=== PATIENT | female | born 1980 ===

== ENCOUNTER 2017-03-05 15:36 | Emergency (ER) | payer SELFPAY ==
[2017-03-05 15:55] VITALS: BP 100/62; PULSE 73; RESP 16; TEMP 99; O2SAT 100
--- NOTE | 2017-03-05 16:29 | ED PDOC ---
Lower Extremity Pain/Injury Time Seen by Provider: 03/05/17 16:06 Chief Complaint (Nursing): Lower Extremity Problem/Injury Chief Complaint (Provider): Left ankle pain History Per: Patient History/Exam Limitations: no limitations Onset/Duration Of Symptoms: Sudden Onset Current Symptoms Are (Timing): Still Present Severity: Moderate Additional Complaint(s): Lea Dobson is a 36 y/o female presenting to the ER on 03/05/2017 with a sudden onset of right ankle pain. Prior to arrival, patient reports she was lifting heavy weights at a local gym when her legs gave out on her, forcing her to twist her ankle. After the injury, she also felt "cramping" pelvic pain that eventually resolved on its own. Patient was able to ambulate to the ER for evaluation. - Ankle/Foot Description Of Injury: Twisted Past Medical History Reviewed: Historical Data, Nursing Documentation, Vital Signs Vital Signs: Last Vital Signs Temp 99.0 F 03/05/17 15:50 Pulse 73 03/05/17 15:50 Resp 16 03/05/17 15:50 BP 100/62 03/05/17 15:50 Pulse Ox 100 03/05/17 15:50 - Medical History PMH: Gastritis - Surgical History Surgical History: Cholecystectomy - Family History Family History: States: No Known Family Hx - Living Arrangements Living Arrangements: With Family - Social History Current smoker - smoking cessation education provided: No Alcohol: None Drugs: Denies - Home Medications Home Medications: Ambulatory Orders Medication Instructions Recorded Dicyclomine [Bentyl] 20 mg PO BID PRN #30 tab 09/16/16 Ondansetron [Zofran] 4 mg PO Q8H PRN #30 tab 09/16/16 Saccharomyces Boulardi [Florastor] 500 mg PO BID #28 cap 09/16/16 Nitrofurantoin Macrocrystals 100 mg PO BID #20 cap 09/17/16 [Macrobid] Ibuprofen [Motrin] 600 mg PO Q6 PRN #15 tab 03/05/17 - Allergies Allergies/Adverse Reactions: Allergies Allergy/AdvReac Type Severity Reaction Status Date / Time No Known Allergies Allergy Verified 03/05/17 15:50 Wells Criteria for PE - Wells Criteria for Pulmonary Embolism Clinical Signs and Symptoms of DVT: No P.E is #1 Diagnosis, or Equally Likely: No Heart Rate >100: No Immobilization at least 3 days;Surgery previous 4 weeks: No Previous, objectively diagnosed PE or DVT: No Hemoptysis: No Malignancy w/treatment within 6 months, or palliative: No Total Score: 0 Review of Systems ROS Statement: Except As Marked, All Systems Reviewed And Found Negative Gastrointestinal: Positive for: Abdominal Pain (muscle strain to abdomen after lifting at the gym). Negative for: Nausea, Vomiting Genitourinary Female: Positive for: Pelvic Pain Musculoskeletal: Positive for: Leg Pain ((+) right ankle pain ) Neurological: Positive for: Other (no head injury or LOC). Negative for: Weakness, Numbness Physical Exam - Reviewed Nursing Documentation Reviewed: Yes Vital Signs Reviewed: Yes - Physical Exam Appears: Positive for: Non-toxic, No Acute Distress Head Exam: Positive for: ATRAUMATIC, NORMOCEPHALIC Skin: Positive for: Normal Color. Negative for: Rash Eye Exam: Positive for: Normal appearance Neck: Positive for: Normal, Painless ROM Gastrointestinal/Abdominal: Positive for: Normal Exam, Bowel Sounds ( normoactive in all 4 quadrants), Soft, Other (no ecchymosis or STS to abdominal wall). Negative for: Tenderness, Distended, Guarding, Rebound Back: Negative for: L CVA Tenderness, R CVA Tenderness, Vertebral Tenderness Extremity: Positive for: Tenderness ((+) right lateral malleolus; (-) tenderness to right foot ), Swelling ((+) right lateral malleolus with decreased ROM). Negative for: Deformity Neurologic/Psych: Positive for: Alert, Oriented, Gait (steady ). Negative for: Motor/Sensory Deficits - Laboratory Results Urine POC: Negative - ECG O2 Sat by Pulse Oximetry: 100 Pulse Ox Interpretation: Normal - Other Rad right ankle x-ray X-Ray: Interpreted by Me, Viewed By Me X-Ray Interpretation: no fx, no dis, mild STS Medical Decision Making Medical Decision Makin:06 Initial Impression- 36 y/o female with right ankle injury and strain to abdominal wall Initial Plan- * XR right ankle * Ibuprofen 600 mg PO * Urine preg Abdominal exam is benign. Motrin dose helped abdominal and ankle pain. X-ray negative for fracture or dislocation. See procedure note, crutches given. Patient was referred to clinic for follow up. Rx motrin provided. Documented by Paolo Mobley, acting as a scribe for Terri Amsellem, PA-C All medical record entries made by the Amber were at my direction and personally dictated by me. I have reviewed the chart and agree that the record accurately reflects my personal performance of the history, physical exam, medical decision making, and the department course for this patient. I have also personally directed, reviewed, and agree with the discharge instructions and disposition. Procedures - Splinting Location: right ankle Pre-Made Type: kayley wrap, aircast and orthoshoe Disposition - Clinical Impression Clinical Impression: Ankle sprain, Abdominal wall strain - Patient ED Disposition Is Patient to be Admitted: No Counseled Patient/Family Regarding: Studies Performed, Diagnosis, Need For Followup, Rx Given - Disposition Referrals: [facility] [Outside] Podiatry Clinic [Outside] Disposition: Routine/Home Disposition Time: 17:35 Condition: STABLE Additional Instructions: Ice, rest and elevate affected area. Take prescription meds for pain relief as needed as directed. Follow up in 2-3 days with podiatry clinic and family practice clinic. Prescriptions: Ibuprofen [Motrin] 600 mg PO Q6 PRN #15 tab PRN Reason: Pain, Moderate (4-7) Instructions: Ankle Sprain (ED), Crutch Instructions (ED), Muscle Strain (ED), Ankle Stirrup Splint (ED) Forms: [facility] ED School/Work Excuse Print Language: OCCITAN
--- NOTE | 2017-03-05 17:35 | RAD ---
PROCEDURE: Right ankle dated 03/05/2017 HISTORY: trauma COMPARISON: None FINDINGS: BONES: Current study reveals no evidence of acute displaced fracture nor dislocation. Osseous structures including the talar dome intact. Ankle mortise maintained. JOINTS: Ankle mortise maintained. No significant osteoarthritis. SOFT TISSUES: No significant soft tissue swelling. OTHER FINDINGS: None. IMPRESSION: No evidence of acute displaced fracture nor dislocation. If symptoms persist or occult fracture suspected clinically consider repeat radiographs in 5-10 days as most fractures should become radiographically evident in this timeframe.
== END 2017-03-05 17:50 | disposition home or self-care (01) ==
LOC: H.ER 15:36
DX: S93.402A Sprain of unspecified ligament of left ankle, initial encounter (principal); S39.011A Strain of muscle, fascia and tendon of abdomen, initial encounter; Y93.B9 Activity, other involving muscle strengthening exercises; Y92.39 Other specified sports and athletic area as the place of occurrence of the external cause

== ENCOUNTER 2017-05-22 18:10 | Observation (INO) | payer OTHER ==
[2017-05-22 18:20] VITALS: BP 126/68; PULSE 76; RESP 16; TEMP 98.6; O2SAT 99
[2017-05-22] MEDS ORDERED: Iohexol 240 (50 ml) PO ONE (19:44)
--- NOTE | 2017-05-22 20:15 | ED PDOC ---
HPI: Abdomen Time Seen by Provider: 05/22/17 19:15 Chief Complaint (Nursing): Dizziness/Lightheaded Chief Complaint (Provider): Abdominal pain History Per: Patient History/Exam Limitations: no limitations Onset/Duration Of Symptoms: Days (x1 week) Current Symptoms Are (Timing): Still Present Additional Complaint(s): Lea Dobson is a 37 year old female who presents to the emergency department with a complaint of intermittent RLQ pain associated with dizziness, irregular menses and vaginal spotting ongoing for 1 week. Denied any fever, chills, nausea , vomiting, diarrhea, cough, shortness of breath, dysuria or hematuria. Patient stated that her menses has been irregular since she had control injection preformed in 10/2016 done at [facility]. She reported being concerned about possible . LMP: February 2017 PMD: none provided Past Medical History Reviewed: Historical Data, Nursing Documentation, Vital Signs Vital Signs: Last Vital Signs Temp 98.6 F 05/22/17 18:17 Pulse 76 05/22/17 18:17 Resp 16 05/22/17 18:17 BP 126/68 05/22/17 18:17 Pulse Ox 99 05/22/17 20:31 - Medical History PMH: No Chronic Diseases, Gastritis Denies: Chronic Kidney Disease - Surgical History Surgical History: Cholecystectomy - Family History Family History: States: Unknown Family Hx - Social History Current smoker - smoking cessation education provided: No Alcohol: None Drugs: Denies - Immunization History Hx Tetanus Toxoid Vaccination: Yes Hx Influenza Vaccination: Yes Hx Pneumococcal Vaccination: Yes - Home Medications Home Medications: Ambulatory Orders Medication Instructions Recorded Dicyclomine [Bentyl] 20 mg PO BID PRN #30 tab 09/16/16 Ondansetron [Zofran] 4 mg PO Q8H PRN #30 tab 09/16/16 Saccharomyces Boulardi [Florastor] 500 mg PO BID #28 cap 09/16/16 Nitrofurantoin Macrocrystals 100 mg PO BID #20 cap 09/17/16 [Macrobid] Ibuprofen [Motrin] 600 mg PO Q6 PRN #15 tab 03/05/17 - Allergies Allergies/Adverse Reactions: Allergies Allergy/AdvReac Type Severity Reaction Status Date / Time No Known Allergies Allergy Verified 03/05/17 15:50 Review of Systems ROS Statement: Except As Marked, All Systems Reviewed And Found Negative Constitutional: Negative for: Fever, Chills Respiratory: Negative for: Cough, Shortness of Breath Gastrointestinal: Positive for: Abdominal Pain (RLQ). Negative for: Nausea, Vomiting, Diarrhea Genitourinary Female: Negative for: Dysuria, Hematuria Neurological: Positive for: Dizziness Physical Exam - Reviewed Nursing Documentation Reviewed: Yes Vital Signs Reviewed: Yes - Physical Exam Appears: Positive for: Well, Non-toxic, No Acute Distress Head Exam: Positive for: ATRAUMATIC, NORMAL INSPECTION, NORMOCEPHALIC Cardiovascular/Chest: Positive for: Regular Rate, Rhythm. Negative for: Chest Non Tender Respiratory: Positive for: Normal Breath Sounds. Negative for: Respiratory Distress Gastrointestinal/Abdominal: Positive for: Tenderness (mild RLQ). Negative for: Normal Exam Neurologic/Psych: Positive for: Alert, narrow gauge operator II-XII, Oriented - ECG O2 Sat by Pulse Oximetry: 99 (RA) Pulse Ox Interpretation: Normal Medical Decision Making Medical Decision Making: Initial Impression: RLQ pain; Irregular menses Initial Plan: * CT ABD/Pelvis with PO and IV contrast * Labs * Urine dipstick * Urine * Omnipaque 50ml PO * Urinalysis * US pelvis/transvag * Admit to hospital Scribe Attestation: Documented by Delilah Page, acting as a scribe for Wilbert Kwon MD. Provider Scribe Attestation: All medical record entries made by the Scribe were at my direction and personally dictated by me. I have reviewed the chart and agree that the record accurately reflects my personal performance of the history, physical exam, medical decision making, and the department course for this patient. I have also personally directed, reviewed, and agree with the discharge instructions and disposition. Disposition - Disposition Disposition Time: 19:44 Condition: GOOD
--- NOTE | 2017-05-22 20:38 | ED PDOC ---
HPI: Abdomen Time Seen by Provider: 05/22/17 19:15 Chief Complaint (Nursing): Dizziness/Lightheaded Chief Complaint (Provider): Abdominal pain History Per: Patient History/Exam Limitations: no limitations Onset/Duration Of Symptoms: Days (x week) Current Symptoms Are (Timing): Still Present Additional Complaint(s): Lea Dobson is a 37 year old female who presents to the emergency department with a complaint of intermittent RLQ pain associated with dizziness, irregular menses and vaginal spotting ongoing for 1 week. Denied any fever, chills, nausea , vomiting, diarrhea, cough, shortness of breath, dysuria or hematuria. Patient stated that her menses has been irregular since she had control injection preformed in 10/2016 done at [facility]. She reported being concerned about possible . LMP: February 2017 PMD: none provided Past Medical History Reviewed: Historical Data, Nursing Documentation, Vital Signs Vital Signs: Last Vital Signs Temp 98.6 F 05/22/17 18:17 Pulse 76 05/22/17 18:17 Resp 16 05/22/17 18:17 BP 126/68 05/22/17 18:17 Pulse Ox 99 05/22/17 20:39 - Medical History PMH: Gastritis Denies: Chronic Kidney Disease - Surgical History Surgical History: Cholecystectomy - Family History Family History: States: Unknown Family Hx - Social History Current smoker - smoking cessation education provided: No Alcohol: None Drugs: Denies - Immunization History Hx Tetanus Toxoid Vaccination: Yes Hx Influenza Vaccination: Yes Hx Pneumococcal Vaccination: Yes - Home Medications Home Medications: Ambulatory Orders Medication Instructions Recorded Dicyclomine [Bentyl] 20 mg PO BID PRN #30 tab 09/16/16 Ondansetron [Zofran] 4 mg PO Q8H PRN #30 tab 09/16/16 Saccharomyces Boulardi [Florastor] 500 mg PO BID #28 cap 09/16/16 Nitrofurantoin Macrocrystals 100 mg PO BID #20 cap 09/17/16 [Macrobid] Ibuprofen [Motrin] 600 mg PO Q6 PRN #15 tab 03/05/17 - Allergies Allergies/Adverse Reactions: Allergies Allergy/AdvReac Type Severity Reaction Status Date / Time No Known Allergies Allergy Verified 03/05/17 15:50 Review of Systems ROS Statement: Except As Marked, All Systems Reviewed And Found Negative Constitutional: Negative for: Fever, Chills Respiratory: Negative for: Cough, Shortness of Breath Gastrointestinal: Positive for: Abdominal Pain (RLQ). Negative for: Nausea, Vomiting, Diarrhea Genitourinary Female: Negative for: Dysuria, Hematuria Neurological: Positive for: Dizziness Physical Exam - Reviewed Nursing Documentation Reviewed: Yes Vital Signs Reviewed: Yes - Physical Exam Appears: Positive for: Well, Non-toxic, No Acute Distress Head Exam: Positive for: ATRAUMATIC, NORMAL INSPECTION, NORMOCEPHALIC Cardiovascular/Chest: Positive for: Regular Rate, Rhythm. Negative for: Chest Non Tender Respiratory: Positive for: Normal Breath Sounds. Negative for: Respiratory Distress Gastrointestinal/Abdominal: Positive for: Soft, Tenderness (mild RLQ). Negative for: Mass Neurologic/Psych: Positive for: Alert, animal sticker II-XII, Oriented - ECG O2 Sat by Pulse Oximetry: 99 (RA) Pulse Ox Interpretation: Normal Medical Decision Making Medical Decision Making: Initial Impression: RLQ pain; Irregular menses Initial Plan: * CT ABD/Pelvis with PO and IV contrast * Labs * Urine dipstick * Urine * Omnipaque 50ml PO * Urinalysis * US pelvis/transvag * Admit to hospital Time: 1949 --This patient is choosing to leave against medical advice. The physician has personally explained to the patient that choosing to do so may result in permanent bodily harm or . The EP discussed at great length that without further evaluation and monitoring there may be unforeseen circumstances and/or deterioration causing permanent bodily harm or as a result of their choice. The patient verbalized these risks back to the physician in laymans terms. Patient is alert , oriented, and shows the mental capacity to make clear decisions regarding the patients health care at this time. The patient continues to wish to leave against medical advice Scribe Attestation: Documented by Delilah Page, acting as a scribe for Wilbert Kwon MD. Provider Scribe Attestation: All medical record entries made by the Scribe were at my direction and personally dictated by me. I have reviewed the chart and agree that the record accurately reflects my personal performance of the history, physical exam, medical decision making, and the department course for this patient. I have also personally directed, reviewed, and agree with the discharge instructions and disposition. Disposition - Clinical Impression Clinical Impression: Abdominal pain - Patient ED Disposition Is Patient to be Admitted: No Counseled Patient/Family Regarding: Need For Followup - Disposition Disposition: Against Medical Advice Disposition Time: 19:44 Condition: GOOD
== END 2017-05-22 20:03 | disposition home or self-care (01) ==
LOC: H.ER 18:10 → H.EROBSV 19:44
PROVIDERS: ADMIT Emergency Medicine; ATTEND Emergency Medicine
DX: R10.2 Pelvic and perineal pain (principal)
CPT/HCPCS: 81025; 99284; G0378

== ENCOUNTER 2017-05-25 17:53 | Observation (INO) | payer OTHER ==
[2017-05-25 18:00] VITALS: BP 94/53; PULSE 54; RESP 16; TEMP 98.2; O2SAT 99
[2017-05-25] MEDS ORDERED: Iohexol 240 (50 ml) PO STA (18:20)
[2017-05-25] MEDS ORDERED: Lactated Ringer's 1,000 ML IV STA (18:20)
[2017-05-25] MEDS ORDERED: Iohexol 240 (50 ml) ONE (18:37)
[2017-05-25 19:00] LABS: BASO % 0.4 % (0.0-2.0); EOS # 0.1 K/uL (0.0-0.7); EOS % 0.9 % (0.0-4.0); HEMATOCRIT 36.5 % (34.0-47.0); LYMPH # 2.1 K/uL (1.0-4.3); LYMPH % 27.6 % (20.0-40.0); MEAN CELL VOLUME 95.1 fl (81.0-99.0); MEAN CORPUSCULAR HGB CONC 32.6 g/dL (33.0-37.0); MEAN PLATELET VOLUME 9.9 fl (7.2-11.7); MONO # 0.4 K/uL (0.0-0.8); MONO % 4.8 % (0.0-10.0); NEUT % 66.3 % (50.0-75.0); NRBC % 0.1 % (0.0-0.0); RED CELL DISTRIBUTION WIDTH 13.3 % (11.5-14.5); WHITE BLOOD COUNT 7.5 K/uL (4.8-10.8)
[2017-05-25 19:11] LABS: ALB/GLOB RATIO 1.6 (1.0-2.1); ALKALINE PHOSPHATASE 50 U/L (38-126); ALT/SGPT 33 U/L (9-52); AST/SGOT 16 U/L (14-36); BILIRUBIN,TOTAL 1.4 mg/dl (0.2-1.3); BLOOD UREA NITROGEN 22 mg/dl (7-17); CALCIUM 9.2 mg/dL (8.4-10.2); CARBON DIOXIDE 25 mmol/L (22-30); CHLORIDE 104 mmol/L (98-107); GFR AFRICAN-AMERICAN > 60; GLUCOSE,RANDOM 90 mg/dL (65-105); MAGNESIUM 2.1 MG/DL (1.6-2.3); PHOSPHOROUS 4.1 mg/dl (2.5-4.5); POTASSIUM 3.8 MMOL/L (3.6-5.0); SODIUM 137 mmol/l (132-148); TOTAL PROTEIN 6.7 G/DL (6.3-8.2)
--- NOTE | 2017-05-25 19:17 | ED PDOC ---
HPI: Abdomen Time Seen by Provider: 05/25/17 18:06 Chief Complaint (Nursing): Abdominal Pain Chief Complaint (Provider): Abdominal pain History Per: Patient History/Exam Limitations: no limitations Onset/Duration Of Symptoms: Days Outside of [place] travel?: No Current Symptoms Are (Timing): Still Present Location Of Pain/Discomfort: Diffuse Quality Of Discomfort: "Pain" Additional Complaint(s): The pt is a 37yo female, presents to the ED for evaluation of abdominal pain which has been present intermittently for the past month but worsening over the last few days. Pt reports the pain is in her lower abdomen and radiates to her back and is associated with vomiting when she attempts to eat. Pt also reports amenorrhea for several months as well as unintentional weight loss and headache. Pt was seen in this facility 3 days ago but signed out AMA because of childcare concerns. Pt reports her pain has worsened since her last visit. She denies having a PCP with whom she regularly follows up. Pt offers no additional medical complaints. She admits that she has a lot of stress because of finances and who is pressuring patient to have another child. Past Medical History Reviewed: Historical Data, Nursing Documentation, Vital Signs Vital Signs: Last Vital Signs Temp 98.2 F 05/25/17 17:55 Pulse 54 L 05/25/17 17:55 Resp 16 05/25/17 17:55 BP 94/53 L 05/25/17 17:55 Pulse Ox 99 05/25/17 22:01 - Medical History PMH: No Chronic Diseases, Gastritis Denies: Chronic Kidney Disease - Surgical History Surgical History: Cholecystectomy - Family History Family History: States: Unknown Family Hx, Other Other Family History: pt's mother had gastric cancer - Living Arrangements Living Arrangements: With Family - Social History Current smoker - smoking cessation education provided: No Alcohol: None Drugs: Denies - Immunization History Hx Tetanus Toxoid Vaccination: Yes Hx Influenza Vaccination: Yes Hx Pneumococcal Vaccination: Yes - Home Medications Home Medications: Ambulatory Orders Medication Instructions Recorded Dicyclomine [Bentyl] 20 mg PO BID PRN #30 tab 09/16/16 Ondansetron [Zofran] 4 mg PO Q8H PRN #30 tab 09/16/16 Saccharomyces Boulardi [Florastor] 500 mg PO BID #28 cap 09/16/16 Nitrofurantoin Macrocrystals 100 mg PO BID #20 cap 09/17/16 [Macrobid] Ibuprofen [Motrin] 600 mg PO Q6 PRN #15 tab 03/05/17 Ibuprofen [Motrin Tab] 600 mg PO Q8 PRN #60 tab 05/25/17 Ondansetron ODT [Zofran ODT] 1 odt PO Q6 PRN #20 odt 05/25/17 Multivit/Folic Acid/I 1 tab PO DAILY #100 tab 05/25/17 [ Plus] - Allergies Allergies/Adverse Reactions: Allergies Allergy/AdvReac Type Severity Reaction Status Date / Time No Known Allergies Allergy Verified 03/05/17 15:50 Review of Systems ROS Statement: Except As Marked, All Systems Reviewed And Found Negative Constitutional: Positive for: Weight loss Gastrointestinal: Positive for: Vomiting, Abdominal Pain Genitourinary Female: Positive for: Other (amenorrhea) Physical Exam - Reviewed Nursing Documentation Reviewed: Yes Vital Signs Reviewed: Yes - Physical Exam Appears: Positive for: Well, In Acute Distress Head Exam: Positive for: ATRAUMATIC, NORMOCEPHALIC Skin: Positive for: Warm, Dry Eye Exam: Positive for: EOMI, PERRL ENT: Negative for: Pharyngeal Erythema, Tonsillar Exudate Neck: Positive for: Painless ROM, Supple Cardiovascular/Chest: Positive for: Regular Rate, Rhythm, Chest Non Tender. Negative for: Murmur Respiratory: Positive for: Normal Breath Sounds. Negative for: Wheezing, Respiratory Distress Gastrointestinal/Abdominal: Positive for: Soft, Tenderness (mild suprapubic). Negative for: Mass, Distended, Guarding, Rebound Back: Positive for: Normal Inspection. Negative for: L CVA Tenderness, R CVA Tenderness Extremity: Positive for: Normal ROM. Negative for: Deformity Lymphatic: Negative for: Adenopathy Neurologic/Psych: Positive for: Alert, Mood/Affect (anxious affect). Negative for: Motor/Sensory Deficits - Laboratory Results Result Diagrams: 05/25/17 18:52 05/25/17 18:52 - ECG O2 Sat by Pulse Oximetry: 99 (RA) Pulse Ox Interpretation: Normal Medical Decision Making Medical Decision Making: Time: 1809 Impression: abdominal pain Differential: Inflammatory bowel disease, thyroid disorder, dehydration, dysfunctional uterine bleeding, fibroids Plan: -- Labs -- Lactated Ringers 1L -- Zofran 8mg --Reassess Scribe Attestation: Documented by Clare Carbajal acting as a scribe for Terri Jara MD Provider Scribe Attestation: All medical record entries made by the Scribe were at my direction and personally dictated by me. I have reviewed the chart and agree that the record accurately reflects my personal performance of the history, physical exam, medical decision making, and the department course for this patient. I have also personally directed, reviewed, and agree with the discharge instructions and disposition. ED OBSERVATION Date of observation admission: 05/25/17 Time of observation admission: 18:21 - Observation admission statement Patient is being placed in observation because:: Pt with abdominal pain - Goals of Observation Goals of observation are:: Awaiting ED workup, US results - Progress Note Progress Note: 05/25/17 19:23 Labs reviewed and indicated no clinically significant abnormalities. Accession No. : [id number] Patient Name / ID : ELENA MARCUS / [id number] Exam Date : 05/25/2017 18:56:58 ( Approved ) Study Comment : Sex / Age : F / 37Y Creator : Fortino Boateng MD Dictator : Environmental Science Program Director : Principle Software Engineer : Fortino Boateng MD Approver2 : Report Date : 05/25/2017 19:39:00 My Comment : [facility] [address] [place] [address] Tel. no. Patient Name: AMRIT PARKER Pt. Address: [address] [place] [address] Med. Rec #: [id number] [place] [address]: Marek TRISTAN, Terri Kincaid Pt CELL Order Location: NATALY : 1980 Female Age: 37 Order #: [id number] Reason for exam: pelvic pain Ultrasound TRANSVAGINAL Exam Date: 05/25/17 This imaging exam was performed at [facility] EXAM: US Pelvis, Transvaginal CLINICAL HISTORY: 37 years old, female; Pain; Pelvic pain TECHNIQUE: Real-time transvaginal pelvic ultrasound (complete) with image documentation. Transvaginal imaging was used for better evaluation of the endometrium and adnexa. COMPARISON: US - TRANSVAGINAL 03/13/2016 4:41:11 PM FINDINGS: Uterus/cervix: Uterus measures 8.0 x 3.9 x 5.4 cm in size. No myometrial mass. Endometrium: 0.2 cm in thickness. Right ovary: 2.7 x 1.8 x 2.5 cm in size. 1.5 x 1.4 x 1.4 cm anechoic lesion. Small follicles. Normal flow. Left ovary: 2.6 x 1.7 x 2.9 cm in size. 1.4 x 0.8 x 1.1 cm anechoic lesion. Small follicles. Normal flow. Free fluid: No significant free fluid. Bladder: Empty bladder which cannot be evaluated with this probe. IMPRESSION: 1. Ovarian cysts. Dictated By: Fortino Boateng MD Dictated Date/Time: 05/25/171938 Signed By: Fortino Boateng MD Date Signed: 1938 Transcribed By: DAV Transcribe Date/Time : 05/25/171938 ACYP02/VRD Accession No. : [id number] Patient Name / ID : ELENA MARCUS / [id number] Exam Date : 05/25/2017 21:20:17 ( Approved ) Study Comment : Sex / Age : F / 37Y Creator : Fortino Boateng MD Dictator : Environmental Science Program Director : Principle Software Engineer : Fortino Boateng MD Approver2 : Report Date : 05/25/2017 21:46:00 My Comment : [facility] [address] [address] Tel. no. Patient Name: AMRIT PARKER Pt. Address: [address] [place] [address]. Rec #: [id number] [place] [address]: Marek TRISTAN, Terri Kincaid Pt CELL Order Location: NATALY : 1980 Female Age: 37 Order #: [id number] Reason for exam: BLQ abd pain CT Scan ABD PELVIS PO IV CONTRAST Exam Date: 05/25/17 This imaging exam was performed at [facility] EXAM: CT Abdomen and Pelvis With Intravenous Contrast CLINICAL HISTORY: 37 years old, female; Pain; Abdominal pain; Localized; Other: Blq pain; Prior surgery; Surgery date: 6+ months; Surgery type: Gb removed. Patient states: Rt fallopian tube removed, ectopic preg. ; Additional info: Blq abd pain. Sent phy. Doc. With request TECHNIQUE: Axial computed tomography images of the abdomen and pelvis with intravenous contrast. All CT scans at this facility use one or more dose reduction techniques, viz.: automated exposure control; ma/kV adjustment per patient size (including targeted exams where dose is matched to indication; i.e. head); or iterative reconstruction technique. Coronal and sagittal reformatted images were created and reviewed. CONTRAST: 80 mL of [id number] administered intravenously. COMPARISON: US - TRANSVAGINAL 05/25/2017 6:56:58 PM FINDINGS: Lower thorax: RIGHT lower lobe calcified granuloma. ABDOMEN: Liver: Unremarkable. No mass. Gallbladder and bile ducts: Cholecystectomy. No ductal dilation. Pancreas: No ductal dilation. No mass. Spleen: No splenomegaly. Adrenals: No mass. Kidneys and ureters: No mass. No hydronephrosis. Stomach and bowel: No definite mural thickening. No obstruction. Appendix: Normal caliber. No inflammation. PELVIS: Bladder: Unremarkable. Reproductive: 1.0 x 1.2 x 1.0 cm hypodense lesion within LEFT ovary. 1.4 x 1.1 x 1.2 cm hypodense lesion within RIGHT ovary. ABDOMEN and PELVIS: Intraperitoneal space: Trace free fluid within pelvis. No free air. Bones/joints: Chronic L5 pars defects. No acute fracture. Soft tissues: Unremarkable. Vasculature: Unremarkable. No aneurysm. Lymph nodes: No pathologically enlarged lymph nodes. IMPRESSION: 1. Ovarian cysts. See ultrasound report. 2. Incidental/non-acute findings are described above. Dictated By: Fortino Boateng MD Dictated Date/Time: 05/25/172145 Signed By: Fortino Boateng MD Date Signed: 2145 Transcribed By: DAV Transcribe Date/Time : 05/25/172145 ACYP02/ELENITA Disposition - Clinical Impression Clinical Impression: Amenorrhea, Abdominal cramps Counseled Patient/Family Regarding: Studies Performed, Diagnosis, Need For Followup, Rx Given - Disposition Disposition: Routine/Home Disposition Time: 18:20 Condition: IMPROVED
--- NOTE | 2017-05-25 19:39 | US ---
EXAM: US Pelvis, Transvaginal CLINICAL HISTORY: 37 years old, female; Pain; Pelvic pain TECHNIQUE: Real-time transvaginal pelvic ultrasound (complete) with image documentation. Transvaginal imaging was used for better evaluation of the endometrium and adnexa. COMPARISON: US - TRANSVAGINAL 03/13/2016 4:41:11 PM FINDINGS: Uterus/cervix: Uterus measures 8.0 x 3.9 x 5.4 cm in size. No myometrial mass. Endometrium: 0.2 cm in thickness. Right ovary: 2.7 x 1.8 x 2.5 cm in size. 1.5 x 1.4 x 1.4 cm anechoic lesion. Small follicles. Normal flow. Left ovary: 2.6 x 1.7 x 2.9 cm in size. 1.4 x 0.8 x 1.1 cm anechoic lesion. Small follicles. Normal flow. Free fluid: No significant free fluid. Bladder: Empty bladder which cannot be evaluated with this probe. IMPRESSION: 1. Ovarian cysts.
[2017-05-25 19:41] LABS: THYROID STIMULATING HORMONE 1.02 mIU/ML (0.46-4.68)
[2017-05-25] MEDS ORDERED: Sodium Chloride 0.9% 50 ML IV ONE (21:03)
[2017-05-25] MEDS ORDERED: Iohexol 300 50 ML ONE (21:03)
--- NOTE | 2017-05-25 21:46 | CT ---
EXAM: CT Abdomen and Pelvis With Intravenous Contrast CLINICAL HISTORY: 37 years old, female; Pain; Abdominal pain; Localized; Other: Blq pain; Prior surgery; Surgery date: 6+ months; Surgery type: Gb removed. Patient states: Rt fallopian tube removed, ectopic preg. ; Additional info: Blq abd pain. Sent phy. Doc. With request TECHNIQUE: Axial computed tomography images of the abdomen and pelvis with intravenous contrast. All CT scans at this facility use one or more dose reduction techniques, viz.: automated exposure control; ma/kV adjustment per patient size (including targeted exams where dose is matched to indication; i.e. head); or iterative reconstruction technique. Coronal and sagittal reformatted images were created and reviewed. CONTRAST: 80 mL of [id number] administered intravenously. COMPARISON: US - TRANSVAGINAL 05/25/2017 6:56:58 PM FINDINGS: Lower thorax: RIGHT lower lobe calcified granuloma. ABDOMEN: Liver: Unremarkable. No mass. Gallbladder and bile ducts: Cholecystectomy. No ductal dilation. Pancreas: No ductal dilation. No mass. Spleen: No splenomegaly. Adrenals: No mass. Kidneys and ureters: No mass. No hydronephrosis. Stomach and bowel: No definite mural thickening. No obstruction. Appendix: Normal caliber. No inflammation. PELVIS: Bladder: Unremarkable. Reproductive: 1.0 x 1.2 x 1.0 cm hypodense lesion within LEFT ovary. 1.4 x 1.1 x 1.2 cm hypodense lesion within RIGHT ovary. ABDOMEN and PELVIS: Intraperitoneal space: Trace free fluid within pelvis. No free air. Bones/joints: Chronic L5 pars defects. No acute fracture. Soft tissues: Unremarkable. Vasculature: Unremarkable. No aneurysm. Lymph nodes: No pathologically enlarged lymph nodes. IMPRESSION: 1. Ovarian cysts. See ultrasound report. 2. Incidental/non-acute findings are described above.
== END 2017-05-25 22:17 | disposition home or self-care (01) ==
LOC: H.ER 17:53 → H.EROBSV 18:21
PROVIDERS: ADMIT Emergency Medicine; ATTEND Emergency Medicine
DX: R10.9 Unspecified abdominal pain (principal); N91.2 Amenorrhea, unspecified; Z90.49 Acquired absence of other specified parts of digestive tract
CPT/HCPCS: 36415; 74177; 76830; 80053; 81025; 83735; 84100; 84443; 85025; 86850; 86900; 99285; G0378; J2405; J7120; Q9966; Q9967

== ENCOUNTER 2017-09-26 14:20 | Emergency (ER) | payer SELFPAY ==
[2017-09-26 14:28] VITALS: BP 103/70; O2SAT 100
[2017-09-26] MEDS ORDERED: Sodium Chloride 0.9% 1,000 ML IV STA (15:51)
--- NOTE | 2017-09-26 15:52 | ED PDOC ---
HPI: CCC, URI, Sore Throat Time Seen by Provider: 09/26/17 14:33 Chief Complaint (Nursing): Flu-like Symptoms Chief Complaint (Provider): Flu History Per: Patient Additional Complaint(s): 37 yo female, no PMH, presents to ED with complaints of fever, nasal congestion , coughing, vomiting, back pain x3 days. Reports taking Tylenol, mild relief. Of note: Pts daughter in ED for similar symptoms Past Medical History Reviewed: Nursing Documentation, Vital Signs Vital Signs: Last Vital Signs Temp 98.8 F 09/26/17 19:05 Pulse 80 09/26/17 19:05 Resp 18 09/26/17 19:05 BP 103/70 09/26/17 14:27 Pulse Ox 100 09/26/17 19:05 - Medical History PMH: No Chronic Diseases, Gastritis Denies: Chronic Kidney Disease - Surgical History Surgical History: Cholecystectomy - Family History Family History: States: Unknown Family Hx - Living Arrangements Living Arrangements: With Family - Social History Current smoker - smoking cessation education provided: No Alcohol: None Drugs: Denies - Immunization History Hx Tetanus Toxoid Vaccination: Yes Hx Influenza Vaccination: Yes Hx Pneumococcal Vaccination: Yes - Home Medications Home Medications: Ambulatory Orders Medication Instructions Recorded Dicyclomine [Bentyl] 20 mg PO BID PRN #30 tab 09/16/16 Ondansetron [Zofran] 4 mg PO Q8H PRN #30 tab 09/16/16 Saccharomyces Boulardi [Florastor] 500 mg PO BID #28 cap 09/16/16 Nitrofurantoin Macrocrystals 100 mg PO BID #20 cap 09/17/16 [Macrobid] Ibuprofen [Motrin] 600 mg PO Q6 PRN #15 tab 03/05/17 Ibuprofen [Motrin Tab] 600 mg PO Q8 PRN #60 tab 05/25/17 Ondansetron ODT [Zofran ODT] 1 odt PO Q6 PRN #20 odt 05/25/17 Multivit/Folic Acid/I 1 tab PO DAILY #100 tab 05/25/17 [ Plus] Oseltamivir [Tamiflu] 75 mg PO BID 5 Days cap 09/26/17 - Allergies Allergies/Adverse Reactions: Allergies Allergy/AdvReac Type Severity Reaction Status Date / Time No Known Allergies Allergy Verified 06/15/17 15:50 Review of Systems ROS Statement: Except As Marked, All Systems Reviewed And Found Negative Constitutional: Positive for: Fever ENT: Positive for: Nose Congestion Respiratory: Positive for: Cough Gastrointestinal: Positive for: Abdominal Pain Physical Exam - Reviewed Nursing Documentation Reviewed: Yes Vital Signs Reviewed: Yes - Physical Exam Appears: Positive for: Well, Non-toxic, No Acute Distress Head Exam: Positive for: ATRAUMATIC, NORMAL INSPECTION, NORMOCEPHALIC Skin: Positive for: Normal Color, Warm, DRY Eye Exam: Positive for: EOMI, Normal appearance, PERRL ENT: Positive for: Normal ENT Inspection Neck: Positive for: Normal, Painless ROM Cardiovascular/Chest: Positive for: Regular Rate, Rhythm Respiratory: Positive for: CNT, Normal Breath Sounds Gastrointestinal/Abdominal: Positive for: Normal Exam, Bowel Sounds, Soft Back: Positive for: Normal Inspection Extremity: Positive for: Normal ROM Neurologic/Psych: Positive for: Alert, Oriented - Laboratory Results Result Diagrams: 09/26/17 16:45 - ECG O2 Sat by Pulse Oximetry: 100 Medical Decision Making Medical Decision Making: IV access established and treatment initiated with IVF, Zofran and Toradol Labs resulted and reviewed who demonstrated full understanding. COMP re-draw needed. Pt delcined Flu A + CXR: NAd, as read by PAAsher Disposition - Clinical Impression Clinical Impression: Influenza - Patient ED Disposition Is Patient to be Admitted: No - Disposition Disposition: Routine/Home Disposition Time: 19:11 Condition: STABLE Prescriptions: Oseltamivir [Tamiflu] 75 mg PO BID 5 Days cap Instructions: Influenza in Children (ED) Forms: [facility] (Azeri) - POA Present On Arrival: None
[2017-09-26 16:30] LABS: SQUAMOUS EPITHIAL 7 /hpf (0-5); URINE BACTERIA RARE (<OCC); URINE BILIRUBIN NEGATIVE (NEGATIVE); URINE BLOOD NEGATIVE (NEGATIVE); URINE CLARITY CLOUDY (Clear); URINE COLOR AMBER (YELLOW); URINE GLUCOSE (UA) NEG (Normal); URINE LEUKOCYTE ESTERASE NEG Leu/uL (Negative); URINE NITRATE NEGATIVE (NEGATIVE); URINE PROTEIN 100 mg/dL (NEGATIVE); URINE UROBILINOGEN 0.2-1.0 mg/dL (0.2-1.0)
--- NOTE | 2017-09-26 16:44 | RAD ---
HISTORY: fever and cough COMPARISON: 09/16/2016 TECHNIQUE: Chest PA and lateral FINDINGS: LUNGS: No active pulmonary disease. PLEURA: No significant pleural effusion identified. No pneumothorax apparent. CARDIOVASCULAR: Normal. OSSEOUS STRUCTURES: No significant abnormalities. VISUALIZED UPPER ABDOMEN: Normal. OTHER FINDINGS: Surgical clips are seen in the right upper quadrant. Trachea is midline. IMPRESSION: No active disease.
[2017-09-26 17:20] LABS: BASO % 0.3 % (0.0-2.0); EOS % 0.1 % (0.0-4.0); HEMOGLOBIN 13.5 g/dL (12.0-16.0); LYMPH # 0.7 K/uL (1.0-4.3); LYMPH % 13.7 % (20.0-40.0); MEAN CELL VOLUME 92.9 fl (81.0-99.0); MEAN CORPUSCULAR HEMOGLOBIN 30.6 pg (27.0-31.0); MEAN CORPUSCULAR HGB CONC 32.9 g/dL (33.0-37.0); MEAN PLATELET VOLUME 11.4 fl (7.2-11.7); MONO # 0.6 K/uL (0.0-0.8); MONO % 11.5 % (0.0-10.0); NEUT # 3.6 K/uL (1.8-7.0); NEUT % 74.4 % (50.0-75.0); RBC 4.41 Mil/uL (3.80-5.20); RED CELL DISTRIBUTION WIDTH 13.1 % (11.5-14.5); WHITE BLOOD COUNT 4.8 K/uL (4.8-10.8)
[2017-09-26 19:07] VITALS: PULSE 80; RESP 18; TEMP 98.8
== END 2017-09-26 19:05 | disposition home or self-care (01) ==
LOC: H.ER 14:20
DX: J11.1 Influenza due to unidentified influenza virus with other respiratory manifestations (principal)
CPT/HCPCS: 71046; 81003; 81025; 85025; 87040; 87804; 96374; 99284; J1885; J2405; J7040

== ENCOUNTER 2018-01-13 18:29 | Emergency (ER) | payer SELFPAY ==
--- NOTE | 2018-01-13 20:14 | ED PDOC ---
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 States that she has discomfort with urinating and frequency, no hematuria. Denies fevers, back pain, nausea, vomiting. Past Medical History Reviewed: Historical Data, Nursing Documentation, Vital Signs Vital Signs: Last Vital Signs Temp 97.8 F 01/13/18 18:44 Pulse 76 01/13/18 18:44 Resp 18 01/13/18 18:44 BP 109/77 01/13/18 18:44 Pulse Ox 100 01/13/18 20:14 - Medical History PMH: Gastritis Denies: Chronic Kidney Disease - Surgical History Surgical History: Cholecystectomy - Family History Family History: States: Unknown Family Hx - Immunization History Hx Tetanus Toxoid Vaccination: Yes Hx Influenza Vaccination: Yes Hx Pneumococcal Vaccination: Yes - Home Medications Home Medications: Ambulatory Orders Medication Instructions Recorded Dicyclomine [Bentyl] 20 mg PO BID PRN #30 tab 09/16/16 Ondansetron [Zofran] 4 mg PO Q8H PRN #30 tab 09/16/16 Saccharomyces Boulardi [Florastor] 500 mg PO BID #28 cap 09/16/16 Nitrofurantoin Macrocrystals 100 mg PO BID #20 cap 09/17/16 [Macrobid] Ibuprofen [Motrin] 600 mg PO Q6 PRN #15 tab 03/05/17 Ibuprofen [Motrin Tab] 600 mg PO Q8 PRN #60 tab 05/25/17 Ondansetron ODT [Zofran ODT] 1 odt PO Q6 PRN #20 odt 05/25/17 Multivit/Folic Acid/I 1 tab PO DAILY #100 tab 05/25/17 [ Plus] Oseltamivir [Tamiflu] 75 mg PO BID 5 Days cap 09/26/17 Acetaminophen [Pain Reliever] 500 mg PO Q4 #30 tablet 01/13/18 - Allergies Allergies/Adverse Reactions: Allergies Allergy/AdvReac Type Severity Reaction Status Date / Time No Known Allergies Allergy Verified 01/13/18 18:43 Review of Systems ROS Statement: Except As Marked, All Systems Reviewed And Found Negative Gastrointestinal: Positive for: Abdominal Pain Genitourinary Female: Positive for: Dysuria, Frequency, Vaginal Discharge Physical Exam - Reviewed Nursing Documentation Reviewed: Yes Vital Signs Reviewed: Yes - Physical Exam Appears: Positive for: Well, Non-toxic, No Acute Distress Head Exam: Positive for: ATRAUMATIC, NORMAL INSPECTION, NORMOCEPHALIC Skin: Positive for: Normal Color, Warm, DRY Eye Exam: Positive for: EOMI, Normal appearance, PERRL ENT: Positive for: Normal ENT Inspection Neck: Positive for: Normal, Painless ROM Cardiovascular/Chest: Positive for: Regular Rate, Rhythm Respiratory: Positive for: CNT, Normal Breath Sounds Gastrointestinal/Abdominal: Positive for: Normal Exam, Soft, Tenderness ( suprapubic tenderness) Back: Positive for: Normal Inspection Extremity: Positive for: Normal ROM Neurologic/Psych: Positive for: Alert, Oriented - ECG O2 Sat by Pulse Oximetry: 100 Pulse Ox Interpretation: Normal Medical Decision Making Medical Decision MakinPM A/P: p/w suprapubic pain, dysuria, VD -will check ultrasound to r/o ectopic, Ab -will correlate u/s w/ beta-hcg -pending re-eval 1045PM EXAM: US , Transvaginal CLINICAL HISTORY: 37 years old, female; Signs and symptoms; Lmp or gestational age (in weeks): ; Other: Vag discharge; ; Additional info: Vaginal discharge, lower abdominal pain TECHNIQUE: Real-time transvaginal obstetrical ultrasound of the maternal pelvis and a first trimester with image documentation. Transvaginal imaging was used for better evaluation of the fetus and adnexa. COMPARISON: No relevant prior studies available. FINDINGS: Gestation: Gestational sac. Yolk sac. No pole. Mean sac diameter of 1.1 cm , correlating with gestational age of 5 weeks 1 day. Uterus/cervix: No subchorionic hemorrhage. No cervical dilatation or effacement. Ovaries: RIGHT ovary: 1.9 x 1.0 x 1.7 cm in size. LEFT ovary: 3.5 x 2.3 x 2.7 cm in size. No adnexal masses. Free fluid: No significant free fluid. IMPRESSION: 1. Intrauterine , of uncertain viability. Recommend followup. 2. Mildly prominent left ovary, nonspecific. Explained results of US to patient, advised close followup with repeat beta testing and ultrasound with OB. Will provide referral. Strict pelvic rest encouraged. Return precautions discsused. Disposition - Clinical Impression Clinical Impression: Threatened , Abdominal pain during - Patient ED Disposition Is Patient to be Admitted: No - Disposition [facility] Disposition: Routine/Home Disposition Time: 23:01 Condition: STABLE Prescriptions: Acetaminophen [Pain Reliever] 500 mg PO Q4 #30 tablet Instructions: Threatened Miscarriage Forms: [facility] (Armenian) Print Language: UPPER SORBIAN
[2018-01-13 20:19] LABS: SQUAMOUS EPITHIAL 4 /hpf (0-5); URINE BACTERIA RARE (<OCC); URINE BILIRUBIN NEGATIVE (NEGATIVE); URINE BLOOD NEGATIVE (NEGATIVE); URINE CLARITY SLIGHTY-CLOUDY (Clear); URINE COLOR STRAW (YELLOW); URINE GLUCOSE (UA) NEG (Normal); URINE LEUKOCYTE ESTERASE NEG Leu/uL (Negative); URINE PROTEIN NEGATIVE (NEGATIVE); URINE UROBILINOGEN 0.2-1.0 mg/dL (0.2-1.0)
--- NOTE | 2018-01-13 22:53 | US ---
EXAM: US , Transvaginal CLINICAL HISTORY: 37 years old, female; Signs and symptoms; Lmp or gestational age (in weeks): 12/09/17; Other: Vag discharge; ; Additional info: Vaginal discharge, lower abdominal pain TECHNIQUE: Real-time transvaginal obstetrical ultrasound of the maternal pelvis and a first trimester with image documentation. Transvaginal imaging was used for better evaluation of the fetus and adnexa. COMPARISON: No relevant prior studies available. FINDINGS: Gestation: Gestational sac. Yolk sac. No pole. Mean sac diameter of 1.1 cm, correlating with gestational age of 5 weeks 1 day. Uterus/cervix: No subchorionic hemorrhage. No cervical dilatation or effacement. Ovaries: RIGHT ovary: 1.9 x 1.0 x 1.7 cm in size. LEFT ovary: 3.5 x 2.3 x 2.7 cm in size. No adnexal masses. Free fluid: No significant free fluid. IMPRESSION: 1. Intrauterine , of uncertain viability. Recommend followup. 2. Mildly prominent left ovary, nonspecific.
[2018-01-14 00:19] VITALS: BP 102/70; PULSE 86; RESP 16; TEMP 98.2
[2018-01-14 00:21] VITALS: O2SAT 100
== END 2018-01-13 23:21 | disposition home or self-care (01) ==
LOC: H.ER 18:29
DX: O20.0 Threatened abortion (principal)

== ENCOUNTER 2018-07-23 22:56 | Emergency (ER) | payer SELFPAY ==
[2018-07-24 00:27] VITALS: BMI 25.2
[2018-07-24 00:50] LABS: SQUAMOUS EPITHIAL < 1 /hpf (0-5); URINE BACTERIA RARE (<OCC); URINE BILIRUBIN NEGATIVE (NEGATIVE); URINE BLOOD SMALL (NEGATIVE); URINE CLARITY CLEAR (Clear); URINE COLOR YELLOW (YELLOW); URINE GLUCOSE (UA) NEG (Normal); URINE LEUKOCYTE ESTERASE NEG Leu/uL (Negative); URINE PROTEIN NEGATIVE (NEGATIVE); URINE UROBILINOGEN 0.2-1.0 mg/dL (0.2-1.0)
[2018-07-24 01:43] LABS: SPECIMEN COMMENT CLOUDY
--- NOTE | 2018-07-24 09:15 | OBDCSUM ---
Datetime: 07/24/2018 02:00 Discharged to, Provider: Home Follow up at, Provider: [facility] Disch Instr Activity: Normal activity Disch Instr Diet: Regular Discharge Diet restrict Prov: drink at least 5-6 bottles of water per day Discharge Diagnosis, Provider: False Labor - Undelivered Discharge Time: 07/24/2018 02:01 Follow up in weeks, Provider: 07/29/2018 Disch Referrals: None Disch Activity Restrictions: No lifting
--- NOTE | 2018-07-24 09:16 | OBHP ---
Datetime: 07/24/2018 00:30 IP Adm Impression: , intrauterine ; No Active Labor; Intact Membranes IP Admit Plan: Observation/Evaluation; Discharge home Admit Comment, IP Provider: [facility] interpretation [id number] PNP: [facility]- Dr. Nagy WILLIAM: 09/09/2018 38 y/o at 33wks based off first trimester ultrasound is c/o lower abdominal pain that beg an at 3pm today, which initial was intermittent, but became constant 2 hrs ago. She endorses + FM, bu t denies any vaginal bleeding or loss of fluid. Last sexual activity was 1 wk ago. She denies fever, chills, headache, c/p or sob. OBGYNhx: 1 delivery via , 20 yrs ago, "at 8 months" 1 ectopic; 1 , 5 yrs ago at 41 wks, 1 spont abx 2-3 yrs ago PMH: iron deficiency anemia Meds: PNV Allergies: NKA Famhx: noncontributory Sochx: no tob, EtOH or drug use Surghx: D _ C ROS: as mentioned above Vitals: 105/53 P-82bpm RR: 16 PE: awake laying upright in bed breathing comfortably Cardio: s1s2 RRR Resp: cta b/l Abd: gravid, BS+ NST reactive; no decels Pelvic: sterile spec w/o pooling, cervix closed Ext: nonedematous, calves nontender A/P: 38 y/o at 33wks is c/o lower abdominal pain. -No signs of active labor given closed cervix. -FU UA _ fibronectin. If both negative, patient will be discharged home with labor precautions. Patient seen and evaluated with Dr. Leonid Barrios, ALEXANDER, PGY-1 OB Hospitalist on-call. I saw and examind this patient with PGY1 Agree with note., MAHNDO Extremities - PN: Normal Abdomen - PN: Normal General - PN: Normal FHR - Baseline A Provider: 140 Membranes, Provider: Intact Gestation - Est Wks by US: 33.0 Pool Provider: Negative IP Hx Assessment: The History has been Reviewed and is Current EGA AdmitDate IP: 33.1 Vital Signs Provider: Reviewed; Within Normal Limits IP Chief Complaint: Maternal discomfort NICHD Variability Prov Fetus A: Moderate 6-25bpm NICHD Accel Fetus A IP Provider: 15X15 FHR Category Provider Fetus A: Category I NICHD Decel Fetus A IP Provider: None Dilatation, Provider: 0 Genitourinary Exam: Normal
[2018-07-27 01:05] VITALS: BP 99/56; PULSE 81
== END 2018-07-24 02:00 | disposition home or self-care (01) ==
LOC: H.EROB2 22:56
DX: O26.93 Pregnancy related conditions, unspecified, third trimester (principal); R10.2 Pelvic and perineal pain; Z3A.33 33 weeks gestation of pregnancy

== ENCOUNTER 2018-08-19 15:46 | Emergency (ER) | payer SELFPAY ==
[2018-08-18 12:48] VITALS: BMI 25.2
[2018-08-19 23:45] VITALS: BP 102/59; PULSE 97; O2SAT 100
== END 2018-08-19 16:30 | disposition home or self-care (01) ==
LOC: H.EROB2 15:46
DX: O26.93 Pregnancy related conditions, unspecified, third trimester (principal); R10.2 Pelvic and perineal pain; Z3A.30 30 weeks gestation of pregnancy; O47.1 False labor at or after 37 completed weeks of gestation

== ENCOUNTER 2018-09-02 16:51 | Inpatient (IN) | payer MEDICAID, SELFPAY ==
[2018-09-02] MEDS ORDERED: Lactated Ringer's 1,000 ML IV ONE (18:07)
[2018-09-02 18:08] VITALS: BMI 26.0
[2018-09-02] MEDS ORDERED: Oxytocin 30 UNIT 30 UNITS/500 ML BAG IV ONE (18:09)
--- NOTE | 2018-09-02 18:10 | OBHP ---
Datetime: 08/19/2018 16:01 IP Adm Impression: Term, intrauterine IP Admit Plan: Observation/Evaluation; Discharge home Admit Comment, IP Provider: [facility] interpretation services-[id number] 38 y/o at 37wks w/WILLIAM of 09/09/2018 c/o one episode of sharp left lower abdominal pain, 9 /10 lasting 10 secs while getting an ultrasound down. Pain has since resolved. She denies any f/c/n/v /dysuria. She endorses + FM, but denies any vaginal bleeding or loss of fluid. PNP: Dr. Lezama @ [facility] OBGYNhx: -previous hospital visit during this for dehydration - x 2 ("8 months, 20 years ago; 41 wks, 5 years ago) -1 ectopic in 2004 with salppingectomy -1 spont abx 2-3 yrs ago PMH: Iron deficiency anemia, AMA; HGSIL/HPV dx'd 12/06/2017 Meds: PNV, iron pills Allergies: NKA Famhx: Mom- of gastric cancer 9 yrs ago; Dad-arthritis Sochx: no tob, EtOH or drug use Surghx: salpingectomy in 2004 ROS: all points reviewed and neg unless otherwise mentioned in HPI Vitals: 102/59 P-76bpm RR: 16 spo2-100% PE: awake laying upright in bed breathing comfortably Cardio: s1s2 RRR Resp: cta b/l Abd: gravid, BS+, nontender, no rigidity, no guarding Pelvic: cervix closed Ext: nonedematous, calves nontender A/P: 38 y/o at 37wks w/WILLIAM of 09/09/2018, currently stable, not in active labor, c/o one e pisode of sharp left lower abdominal pain that has since resolved with nontender abdomen. - monitoring: reactive _ cervix closed -Discharge home Patient seen and examined with Dr. Selma Barrios, FM, PGY-1 Extremities - PN: Normal Abdomen - PN: Normal Back - PN: Normal Lungs - PN: Normal Heart - PN: Normal General - PN: Normal Gestation - Est Wks by US: 37.0 IP Hx Assessment: The History has been Reviewed and is Current EGA AdmitDate IP: 37.0 Vital Signs Provider: Reviewed; Within Normal Limits IP Chief Complaint: Maternal discomfort
[2018-09-02] MEDS ORDERED: Lactated Ringer's 1,000 ML IV SCH (18:15)
[2018-09-02] MEDS ORDERED: OXYTOCIN/0.9 % NS 20 UNIT/1,000 ML BAG IV SCH (18:15)
[2018-09-02] MEDS ORDERED: Nalbuphine HCL 10 mg/ml Ampule IVP PRN (18:43)
[2018-09-02 19:03] LABS: BASO # 0.1 K/uL (0.0-0.2); BASO % 0.9 % (0.0-2.0); EOS # 0.1 K/uL (0.0-0.7); EOS % 0.6 % (0.0-4.0); HEMOGLOBIN 11.5 g/dL (12.0-16.0); LYMPH # 1.6 K/uL (1.0-4.3); LYMPH % 17.3 % (20.0-40.0); MEAN CELL VOLUME 99.1 fl (81.0-99.0); MEAN CORPUSCULAR HEMOGLOBIN 33.1 pg (27.0-31.0); MEAN CORPUSCULAR HGB CONC 33.4 g/dL (33.0-37.0); MEAN PLATELET VOLUME 9.9 fl (7.2-11.7); MONO # 0.5 K/uL (0.0-0.8); MONO % 5.2 % (0.0-10.0); NEUT # 6.9 K/uL (1.8-7.0); NRBC % 0.1 % (0.0-0.0); RBC 3.49 Mil/uL (3.80-5.20); RED CELL DISTRIBUTION WIDTH 14.7 % (11.5-14.5); WHITE BLOOD COUNT 9.1 K/uL (4.8-10.8)
[2018-09-03] MEDS ORDERED: Nalbuphine HCL 10 mg/ml Ampule ONE (04:45)
[2018-09-03] MEDS ORDERED: Lidocaine 1% Inj (20ml) ONE (07:29)
[2018-09-03] MEDS ORDERED: Oxytocin 30 UNIT 30 UNITS/500 ML BAG IV ONE (07:30)
[2018-09-03] MEDS ORDERED: Benzocaine/Menthol SPRAY TOP PRN ×2 (08:18→19:53)
[2018-09-03] MEDS ORDERED: Oxycodone/Acetaminophen 5/325 mg Tab PO PRN ×4 (08:18→19:53)
--- NOTE | 2018-09-03 08:43 | OBADHP ---
Datetime: 09/02/2018 18:54 Admit Comment, IP Provider: Pt is a 38 yo f 39 wk was scheduled today for induction of labor due decreased head circumference in US. Otherwise Pt does state she had some mild non-frequent contr action yesterday, but denies having vaginal bleed/discharge or water gush. Pt denies any fever chills chest pain, sob, abd pain dysuria or polyuria. ROS neg except for What reported in HPI PCP Dr. Masterson med: pnv PMH: None PSH: Lap viky OBGYn: prev classic c-sec due to ectopic, abnormal pap smear, workup withheld due PFH: Mom cancer, dad healthy Social Denies smoke, drink or drug use during 18:53 Assessment and plan Pt is a 38 yo f 39 wk was scheduled today for induction of labor due decreased head circum ference in US. Will be admitted for induction of labor Start cervidil Vag LR 1L 999 LR 1 L 125 Anesthesia is on case Continue monitoring Nelson Feliciano PGY1 Discussed with Dr Hahn Pelvic Type - PN: Not Done Extremities - PN: Normal Abdomen - PN: Normal Back - PN: Normal Breast - PN: Not Done Lungs - PN: Normal Heart - PN: Normal Thyroid - PN: Normal Neurologic - PN: Normal HEENT - PN: Normal General - PN: Normal FHR - Baseline A Provider: 150 Comments, ACOG Physical Exam: Pt is not in acute distress Heart S1 S2 heard Lung clear Abd +bs non tender Gestation - Est Wks by US: 39.0 Vital Signs Provider: Reviewed; Within Normal Limits IP Chief Complaint: Scheduled induction of labor NICHD Variability Prov Fetus A: Moderate 6-25bpm NICHD Accel Fetus A IP Provider: 15X15 FHR Category Provider Fetus A: Category I Genitourinary Exam: Normal DTRs - PN: Normal EGA AdmitDate IP: 39.0 IP Adm Impression: Term, intrauterine IP Admit Plan: Admit to unit; Initiate labor induction protocol Datetime: 08/19/2018 16:01 IP Hx Assessment: The History has been Reviewed and is Current Datetime: 07/24/2018 00:30 Membranes, Provider: Intact Pool Provider: Negative NICHD Decel Fetus A IP Provider: None Dilatation, Provider: 0
--- NOTE | 2018-09-03 08:47 | OBDS ---
DELIVERY PERSONNEL Delivery Doctor: Taurus Hahn MD [place]: MarioJenniDionne RN MATERNAL INFORMATION Delivery Anesthesia: Local Medications in Delivery: Oxytocin Placenta Cultured: No Maternal Complications: None Provider Comments: Lea Shields 38 yo f now P4 have delivered a healthy baby girl at 7:58 09/03/18 with delivery of placenta at 8:05. Baby girl weight 6762 with of 9/9. There was a fi rst degree teir, and 100ml EBL. Teir was repaired with sutured. Pitocin was started after placenta wa s delivered. Pt is stablized with not acute distress. There was no complication during delivery. Crystal very attended by Dr. Hahn and Dr. Feliciano ( resident) Nelson Feliciano PGY1 LABOR SUMMARY EDC: 09/09/2018 00:00 No. Babies in Womb: 1 LABOR INFORMATION Cervical Ripening Agents: Cervidil (Annotations: Inserted by Dr. Thomas ) Group B Beta Strep: Negative MEMBRANES Membranes Rupture Method: Spontaneous Rupture of Membranes: 09/03/2018 07:58 VAGINAL DELIVERY Episiotomy: None Laceration Extension: First Degree Laceration Type: Perineal Laceration Repair Note: First-degree midline peroneal laceration. Area infiltrated with 1% lidocaine . Laceration repaired with 2. 0 repeat without complication. Patient tolerated repair well. PRESENTATION/POSITION BABY A Presentation: Cephalic
--- NOTE | 2018-09-04 19:14 | OBPPN ---
Datetime: 09/04/2018 05:59 PP Pain Prov: Within normal limits PP Nausea Prov: Denies PP Flatus Prov: Yes PP Comments Phys Exam Prov: See progress note PP Impression Prov: Normal progression PP Plan Prov: Continue present management PP Progress Note Prov: S: 38 y/o s/p on 09/03/18. [facility] had an uneventful overnight. Patient c/o occasional mild pelvic pain that is controlled with medi cation. Pt is getting OOB w/o dizziness and is tolerating regular diet w/o N/V. Patient reports lochi a is like menses in volume, +flatus, voiding well. Patient is using formula to feed baby, is encourag ed to breasfeed. Denies BENNETT, chest pain, blurred vision, SOB, fever, or calf pain. O: VS WNL GEN: Sitting comfortably in bed, NAD HEENT: NCAT LUNGS: CTA, no wheezing CVS: RRR, S1, S2 present normal, no murmurs. ABD: uterus firm at umbilical level EXT: no edema, Bebe's negative A/P 38 y/o s/p , with normal progression, patient is today on her PPD1. -Regular diet -Encourage ambulation -Encourage -PNV 1 tab PO daily -Ibuprofen 600mg 1 tab Q6h prn for mild-mod pain -D/C planning Phil Thomas MD PGY1 Attending Note: patient was discussed with the resident and I agree with the above. Vital Signs Provider PP: Reviewed; Within Normal Limits
--- NOTE | 2018-09-05 14:23 | OBPPN ---
Datetime: 09/05/2018 08:43 PP Pain Prov: Within normal limits PP Nausea Prov: Denies PP Flatus Prov: Yes PP BM Prov: Yes PP Breasts Prov: Normal PP Heart Prov: Normal PP Lungs Prov: Normal PP Abdomen/Uterus Prov: Normal PP Lochia Prov: Normal PP Vulva/Perineum Prov: Normal PP CVA Tenderness Prov: Normal PP Extremities Prov: Normal PP C/S Incision Prov: Not Applicable PP Progress Prov: Normal PP Impression Prov: Normal progression PP Plan Prov: Discharge PP Progress Note Prov: 38 yo sp Normal vag delivery on 09/03/18. Pt seen and examined at bedside today. No acute event overnight. Pt state she still have pelvic pa in but controlled with Ibuprofen. Her lochia is equal to menses. Pt is dizziness have improved and sh e is eating regular diet with no nausea or vomiting. Pt state she have passed BM, and void. Pt is ariel ast and formula feeding baby. Denies BENNETT, chest pain, blurred vision, SOB, fever, or calf pain. O: VS WNL GEN: No acute distress, slept comfortable HEENT: NCAT LUNGS: CTA, no wheezing CVS: RRR, S1, S2 present normal, no murmurs. ABD: uterus firm at umbilical level EXT: no edema, Bebe's negative A/P 38 yo f sp Normal vag delivery, normal progression, will be discharged today . -Regular diet -Continue Breast feeding -PNV 1 tab PO daily -Ibuprofen 600mg 1 tab Q6h prn for mild-mod pain -Discharge today - Pt will follow up with PCP in 4-6 wk for post care. Nelson Feliciano PGY 1 Attending Note: patient was discussed with the Resident and I agree with the above assessment. IP PP Procedures: None Vital Signs Provider PP: Reviewed; Within Normal Limits
--- NOTE | 2018-09-05 14:25 | OBDCSUM ---
Datetime: 09/05/2018 08:57 Discharged to, Provider: Home Follow up at, Provider: Dr. Masterson Disch Instr Activity: Normal activity; May be up for meals; May Shower Disch Instr Diet: Regular Discharge Instructions, Provider: Routine instructions given Discharge Diagnosis, Provider: Term Delivered Discharge Time: 09/05/2018 10:00 Follow up in weeks, Provider: 4-6 wk Disch Referrals: None Disch Activity Restrictions: No exercising; No lifting; Minimize stair-climbing; No sexual activity; Nothing in vagina - [place], tampons, douche Discharge Comment, Provider: ANNA MARIE: 39.1wk Diagnosis:NVD risk factors: none Premium: 09/03/2018@7:58 Post- Summary: No complications during post- period. Lochia less than menses. Pt able to pass gas, BM, ambulate and pass urine. Tolerate regular diet, Fundus firm below umbilicus level. CBC post-: 11.5/34.6 Discharge Instructions: PNV 1 tab PO daily Ibuprofen 600mg 1 tab prn for mild-mod pain ER precautions: If excessive bleeding or fever without relief from medication, go to ED PT was urged if feeling sad, mood swing, depression, neglect of baby, suicidal thoughts, homicidal thought should go to ER or call 911 for help F/U 4-6 week for PP visit Nelson Feliciano PGY1 Contraception after Delivery: Undecided
[2018-09-05 19:07] VITALS: BP 100/67; PULSE 69; RESP 19; TEMP 98.7; O2SAT 99
== END 2018-09-05 14:30 | disposition home or self-care (01) | DRG 560 ==
LOC: H.EROB2 16:51 → H.L&D 18:07 → H.EROB2 18:11 → H.OB/GYN 09-03 17:38
PROVIDERS: ADMIT Obstetrics & Gynecology; ATTEND Obstetrics & Gynecology
PROC: 10E0XZZ Delivery of Products of Conception, External Approach (ICD-10-PCS; principal; 2018-09-03)
PROC: 0HQ9XZZ Repair Perineum Skin, External Approach (ICD-10-PCS; 2018-09-03)
PROC: 4A1HXCZ Monitoring of Products of Conception, Cardiac Rate, External Approach (ICD-10-PCS; 2018-09-03)
DX: O70.0 First degree perineal laceration during delivery (principal); Z37.0 Single live birth; Z3A.39 39 weeks gestation of pregnancy

== ENCOUNTER 2018-09-06 20:22 | Emergency (ER) | payer MEDICAID ==
[2018-09-06 20:23] VITALS: BMI 26.0
--- NOTE | 2018-09-06 22:27 | ED PDOC ---
HPI: General Adult Time Seen by Provider: 09/06/18 22:00 Chief Complaint (Nursing): Female Genitourinary Additional Complaint(s): 38 y/o female presents for evaluation of lower extremity pain/swelling x 3 days. Patient states she was induced and gave vaginally 09/03 and swelling started after. Patient reports pain only with ambulation. Patient also reports bilateral breast tenderness with "lumps"; states she has not been able to express milk since giving despite breast pump and attempting to have baby breast feed. Patient reports dysuria x 1 day. Denies fever, nausea/vomiting, chest pain, shortness of breath, palpitations, nipple discharge, changes in bowel movements, hematuria, vaginal bleeding/discharge. Past Medical History Reviewed: Historical Data, Nursing Documentation, Vital Signs Vital Signs: Last Vital Signs Temp 98.2 F 09/06/18 21:49 Pulse 67 09/06/18 21:49 Resp 16 09/06/18 21:49 BP 119/78 09/06/18 21:49 Pulse Ox 98 09/06/18 21:49 - Medical History PMH: Gastritis Denies: Chronic Kidney Disease - Surgical History Surgical History: Cholecystectomy - Family History Family History: States: Unknown Family Hx - Immunization History Hx Tetanus Toxoid Vaccination: Yes Hx Influenza Vaccination: Yes Hx Pneumococcal Vaccination: Yes - Home Medications Home Medications: Ambulatory Orders Medication Instructions Recorded Pnv No.95/Ferrous Fum/Folic AC 1 tab PO DAILY 09/02/18 [ Vitamins Tablet] - Allergies Allergies/Adverse Reactions: Allergies Allergy/AdvReac Type Severity Reaction Status Date / Time No Known Allergies Allergy Verified 09/06/18 21:51 Review of Systems ROS Statement: Except As Marked, All Systems Reviewed And Found Negative Cardiovascular: Positive for: Chest Pain (breast pain) Genitourinary Female: Positive for: Dysuria Musculoskeletal: Positive for: Leg Pain, Foot Pain Physical Exam - Reviewed Nursing Documentation Reviewed: Yes Vital Signs Reviewed: Yes - Physical Exam Appears: Positive for: Well, Non-toxic, No Acute Distress Head Exam: Positive for: ATRAUMATIC, NORMAL INSPECTION, NORMOCEPHALIC Skin: Positive for: Normal Color Eye Exam: Positive for: Normal appearance ENT: Positive for: Normal ENT Inspection Cardiovascular/Chest: Positive for: Regular Rate, Rhythm, Other (engorged bilateral breasts with palpable ducts lateral aspects bilaterally; no drainage expressed. No erythema) Respiratory: Positive for: Normal Breath Sounds Gastrointestinal/Abdominal: Positive for: Normal Exam Back: Positive for: Normal Inspection Extremity: Positive for: Normal ROM, Pedal Edema. Negative for: Calf Tenderness Neurologic/Psych: Positive for: Alert, Oriented (x3) - Laboratory Results Result Diagrams: 09/06/18 22:50 09/06/18 22:50 - ECG ECG: Positive for: Viewed By Me (reviewed by ED attending) ECG Rhythm: Positive for: Sinus Rhythm O2 Sat by Pulse Oximetry: 98 - Progress ED Course And Treament: case discussed with ED attending Dr. Jara, will check -cbc -cmp -pro-BNP -urinalysis -urine culture -tylenol PO Patient educated on findings (via [place] therapy tech/certified surgical technology instructor), discharged with instructions to follow up PMD within 2-3 days Advised ice, tylenol/ibuprofen PRN pain Patient states dysuria resolved; will await c&s results Elevate legs at rest Return precautions given Disposition - Clinical Impression Clinical Impression: problem, Bilateral lower extremity edema, Dysuria - Patient ED Disposition Is Patient to be Admitted: No Counseled Patient/Family Regarding: Studies Performed, Diagnosis, Need For Followup - Disposition Disposition: Routine/Home Disposition Time: 00:30 Condition: IMPROVED Instructions: Dysuria, Adult (DC), Swelling, Common Problems Forms: [employer] ([place]gu[place]an) Print Language: KU[place]
[2018-09-06 23:08] LABS: BASO # 0.1 K/uL (0.0-0.2); BASO % 0.9 % (0.0-2.0); EOS # 0.1 K/uL (0.0-0.7); HEMOGLOBIN 11.3 g/dL (12.0-16.0); LYMPH # 1.7 K/uL (1.0-4.3); LYMPH % 20.7 % (20.0-40.0); MEAN CELL VOLUME 97.8 fl (81.0-99.0); MEAN CORPUSCULAR HEMOGLOBIN 32.4 pg (27.0-31.0); MEAN CORPUSCULAR HGB CONC 33.2 g/dL (33.0-37.0); MEAN PLATELET VOLUME 8.8 fl (7.2-11.7); MONO # 0.4 K/uL (0.0-0.8); MONO % 5.2 % (0.0-10.0); NEUT # 5.9 K/uL (1.8-7.0); NEUT % 72.2 % (50.0-75.0); RBC 3.48 Mil/uL (3.80-5.20); RED CELL DISTRIBUTION WIDTH 14.5 % (11.5-14.5); WHITE BLOOD COUNT 8.1 K/uL (4.8-10.8)
[2018-09-06 23:10] LABS: SQUAMOUS EPITHIAL < 1 /hpf (0-5); URINE BACTERIA RARE (<OCC); URINE BILIRUBIN NEGATIVE (NEGATIVE); URINE CLARITY CLEAR (Clear); URINE COLOR STRAW (YELLOW); URINE GLUCOSE (UA) NEG (NEGATIVE); URINE LEUKOCYTE ESTERASE NEG Leu/uL (Negative); URINE PROTEIN NEGATIVE (NEGATIVE); URINE UROBILINOGEN 0.2-1.0 mg/dL (0.2-1.0)
[2018-09-06 23:16] LABS: ALBUMIN 3.4 g/dL (3.5-5.0); BLOOD UREA NITROGEN 20 mg/dl (7-17); GFR NON-AFRICAN AMERICAN > 60
[2018-09-06 23:19] LABS: URINE BLOOD SMALL (NEGATIVE)
[2018-09-06 23:25] LABS: B-TYPE NATRIURETIC PEPTIDE 291 pg/ml (0-450)
[2018-09-06 23:26] LABS: ALT/SGPT 47 U/L (9-52); AST/SGOT 48 U/L (14-36)
[2018-09-07 01:21] VITALS: BP 118/57; PULSE 64; RESP 17; TEMP 98.5; O2SAT 99
--- NOTE | 2018-09-07 06:40 | CARD ---
APPROVED REPORT Date of service: 09/06/2018 EKG Measurement Heart [id number] <Conclusion> Normal sinus rhythm Normal ECG
== END 2018-09-07 01:21 | disposition home or self-care (01) ==
LOC: H.ER 20:22
DX: O92.70 Unspecified disorders of lactation (principal); R60.0 Localized edema; R30.0 Dysuria

== ENCOUNTER 2018-11-15 10:55 | Day surgery (SDC) | payer SELFPAY ==
[2018-11-15 11:29] VITALS: BMI 21.4
[2018-11-15 11:48] VITALS: RESP 18; O2SAT 100
[2018-11-15] MEDS ORDERED: Lactated Ringer's 1,000 ML IV ONE (12:02)
[2018-11-15] MEDS ORDERED: Ferric Subsulfate Sol(60 mL) ONE (12:45)
[2018-11-15] MEDS ORDERED: Lidocaine 1% w Epi 1:100,000 Inj ONE (12:45)
[2018-11-15] MEDS ORDERED: Strong Iodine Topical Sol. 5%-10% ONE (12:45)
[2018-11-15] MEDS ORDERED: ACETIC ACID 3% 30 ML LIQUID MC ONE (12:55)
[2018-11-15] MEDS ORDERED: Midazolam 2 MG/2 ML VIAL ONE (13:15)
[2018-11-15] MEDS ORDERED: Propofol 10 mg/ml Inj (20 ML) ONE (13:15)
[2018-11-15] MEDS ORDERED: Strong Iodine Topical Sol. 5%-10% TOP ONE (13:25)
[2018-11-15] MEDS ORDERED: Ferric Subsulfate Sol(60 mL) TP ONE (13:35)
[2018-11-15] MEDS ORDERED: Lactated Ringer's 1,000 ML IV SCH (14:00)
[2018-11-15 15:23] VITALS: BP 131/76; PULSE 54; TEMP 97.4
--- NOTE | 2018-11-16 01:15 | OP ---
PROCEDURE DATE: 11/15/2018 PREOPERATIVE DIAGNOSES: Severe cervical dysplasia, cervical intraepithelial neoplasia 3 with positive endocervical curettage. POSTOPERATIVE DIAGNOSES: Severe cervical dysplasia, cervical intraepithelial neoplasia 3 with positive endocervical curettage. PROCEDURE: Loop electrosurgical excision procedure with top hat. SURGEON: Rodney Aly MD ANESTHESIA: General. INDICATION: This is a 38-year-old female para 3, with a history of an abnormal Pap smear. Previous Pap smear showed HGSIL and a colposcopy demonstrated MELVI 3 with ECC showing fragments of MELVI 3 as well. The patient had no significant past medical history. Past surgical history was significant for a cholecystectomy. The patient was advised to undergo LEEP procedure with top hat due to these findings. All risks and benefits were discussed with the patient with [place]ic interpretation prior to the procedure including potential risks of labor, cervical incompetence, rupture of membranes, cervical stenosis, bleeding and infection, and damage to the surrounding organs were all reviewed. The patient accepted the risks and signed the consent and all questions were answered prior to taking the patient to the operating room. FINDINGS: On bimanual exam, a normal size midline uterus was noted but no adnexal mass is palpated. The cervix appeared grossly normal upon administration of Lugol solution. It revealed the areas of non-uptake surrounding the entire squamocolumnar junction. SPECIMENS: Active cervix with anterior and posterior portion and endocervical specimen with top hat. ESTIMATED BLOOD LOSS: Minimal, 10 mL. IV FLUIDS: 350 mL Lactated Ringers. DESCRIPTION OF PROCEDURE: The patient was taken to the operating room where she was placed on the general anesthesia without difficulty. She was then prepped and draped in usual sterile fashion and placed in a dorsal lithotomy position. A preoperative bimanual exam revealed findings as above, and a preoperative beta-hCG urine was negative for . At this time, a large weighted speculum was placed in the vagina and Lugol solution was painted on the entire cervix and the vaginal wall. The areas of non-uptake were noted around the entire squamocolumnar junction. The large loop electrode was then used to remove the anterior and posterior portion of the cervix, and the specimens excised and handed off the field to be sent to pathology. This small loop electrode was then used to obtain a top hat for excision of the endocervix, and this was also placed off the field, on the Telfa pad to be sent to pathology for evaluation. The bed of the excised cervical tissue along the cervix was cauterized using the roller ball and good hemostasis was noted. Following this, Monsel solution was then also placed on the entire area of the excised cervical tissue. Good hemostasis was noted. All instruments were removed from the vagina at this point. The patient was then repositioned and awaken from anesthesia. The patient tolerated the procedure well without complications, was taken to recovery room in stable condition. She was instructed to continue pelvic rest until seen in the office, given the prescription of Motrin for pain, and must be discharged home when stable and meeting criteria. Rodney Aly MD
== END 2018-11-15 16:00 | disposition home or self-care (01) ==
LOC: H.OPSURG 10:55
PROVIDERS: ATTEND Obstetrics & Gynecology
DX: D06.0 Carcinoma in situ of endocervix (principal)
CPT/HCPCS: 57522; 88305; J1885; J2250; J2405; J2704; J3010; J7120